=== PATIENT | female | born 1945 | race Caucasian/White ===

== ENCOUNTER 2025-02-21 06:40 | Day surgery (SDC) | payer MEDICARE, BC, SELFPAY ==
[2025-02-19 09:24] VITALS: BMI 26.3
--- NOTE | 2025-02-20 07:00 | EKG_ITS ---
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
[2025-02-20 09:52] LABS: Basophils # (Auto) 0.1 Thou/mm3 (0.0-0.2); Basophils % (Auto) 2 % (0-2.5); Eosinophils # (Auto) 0.4 Thou/mm3 (0.0-0.5); Eosinophils % (Auto) 6 % (0-10); Hematocrit 42.1 % (36.0-46.0); Hemoglobin 13.6 g/dL (12.0-16.0); Immature Granulocytes % (Auto) 1 % (0-0); Immature Granulocytes Auto 0.04 Thou/mm3 (0.00-0.00); Lymphocytes # (Auto) 1.3 Thou/mm3 (1.0-4.8); Lymphocytes % (Auto) 19 % (10-50); Mean Corpuscular HGB Conc 32.3 g/dl (31.0-37.0); Mean Corpuscular Hemoglobin 29.3 pg (25.0-35.0); Mean Corpuscular Volume 91 fL (80-100); Monocytes # (Auto) 0.7 Thou/mm3 (0.0-0.8); Monocytes % (Auto) 11 % (0-12); Neutrophils # (Auto) 4.1 Thou/mm3 (1.8-7.7); Neutrophils % (Auto) 61 % (37-80); Nucleated Red Blood Cell % 0 /100 WBC (0); Platelet Count 202 Thou/mm3 (140-440); RDW Standard Deviation 48.4 fL (36.4-46.3); Red Blood Count 4.64 Miln/mm3 (4.00-5.20); White Blood Count 6.6 Thou/mm3 (3.6-11.0)
[2025-02-20 09:53] LABS: Partial Thromboplastin Time 25.2 Seconds (22.0-36.0); Prothrombin Time 10.9 Seconds (9.0-12.2)
[2025-02-20 09:58] LABS: Anion Gap 11 (7-16); BUN/Creatinine Ratio 19 Ratio (12-20); Blood Urea Nitrogen 19 mg/dL (9-23); Calcium 9.5 mg/dL (8.3-10.6); Carbon Dioxide 26.4 mMol/L (20.0-31.0); Chloride 108 mMol/L (98-107); Estimated Creatinine Clearance 46.2 mL/min (>60); Glucose 108 mg/dL (74-106); Osmolality,Calculated 291 (275-295); Sodium 145 mMol/L (136-145); eGFR 57 See Note
[2025-02-21] VITALS (15 sets, daily range): BP systolic 122–159; BP diastolic 46–69; PULSE 48–60; RESP 14–20; TEMP 36.5–36.8; O2SAT 96–99
--- NOTE | 2025-02-21 10:05 | PC.NURSE ---
0851 patient is awake, alert, breathing unlabored, s/p LHC by Dr. Asbhy, Dressing to right groin dry with no bleeding or hematoma, report received from Clementine ISAACS. Patient to recover for [address] Ashby at bedside talking to patient and family and answering questions. 15 patient food tray arrived, pt eating jello and would like to wait to eat the rest
--- NOTE | 2025-02-21 10:14 | ESOP_ITS ---
RE: RICHAR CHRISTIAN : 1945 DATE OF OPERATION: 02/21/2025 PROCEDURE PERFORMED: 1. Diagnostic left heart cardiac catheterization, selective coronary angiogram, left ventricular angiogram, CPT 74530. 2. Conscious sedation for 30-minute duration. 3. Ultrasound-guided access, right femoral artery. DIAGNOSES: Coronary artery disease, abnormal stress test. HISTORY AND INDICATIONS: The patient is an 79-year-old lady with a history of hypertension and sick sinus syndrome. Previously, she has cardiac arrhythmias, has unspecified angina and shortness of breath. Nuclear scan showed perfusion _ in the inferior apical segments. Coronary angiogram was recommended to assess if the patient is a candidate for intervention and revascularization. DESCRIPTION OF PROCEDURE: The patient was brought to cardiac catheterization laboratory where she was given 2 mg Versed and 50 mcg of fentanyl for sedation. The right femoral approach was taken. right femoral approach. The right femoral artery was cannulated by micropuncture technique and 5-[place] sheath was introduced. Ultrasound guidance was used. A 5-[place] FR4 guiding diagnostic catheter was used to perform left heart catheterization, and right coronary angiogram. A 5-[place] FL4 diagnostic catheter was used to perform left coronary angiogram, multiple views were obtained. The patient tolerated the procedure well with no complications. Cardiac catheterization showed following findings: HEMODYNAMICS: Left ventricular pressure is 155/0, EDP 20, aortic pressure 152/100. There is no gradient across the aortic valve. Left ventricular angiogram showed evidence of normal left ventricular wall motion, ejection fraction 70%. FINDINGS: Coronary angiogram showed the following findings: Right coronary artery is large and dominant, gives off PDA and PL branches, all of them appear normal. Left coronary system: Left main coronary artery is normal. Left anterior descending artery appears normal. Left circumflex artery is nondominant, appeared normal. Ramus intermedius is normal. SUMMARY OF FINDINGS AND SUGGESTIONS: 1. Normal nonobstructive epicardial coronary arteries. 2. Dominant right coronary artery. 3. Normal left ventricular function. Ejection fraction 30%. RECOMMENDATIONS: The patient was reassured about the absence of significant obstructive coronary artery disease. Prognosis is excellent. DT: 08:47:32 TT: 09:44:00 Ref: [id number] - TID: [id number] [facility]
--- NOTE | 2025-02-21 14:03 | PC.NURSE ---
1308 patient is awake, alert, breathing unlabored, dressing to right groin dry with no bleeding or hematoma, pt able to ambulate to bathroom and void, able to tolerate jello, water and applesauce with no nausea or vomiting, meets discharge criteria, discharge instructions given to patient and Shreyas, patient discharged home in wheelchair with all belongings.
== END 2025-02-21 13:08 | disposition home or self-care (01) ==
PROVIDERS: PCP Family Medicine; Referring Provider Internal Medicine Cardiovascular Disease; Visit Provider Internal Medicine Cardiovascular Disease
PROC: (CPT 93458; principal; 2025-02-21 07:30)
DX: I25.119 Atherosclerotic heart disease of native coronary artery with unspecified angina pectoris (principal); R00.1 Bradycardia, unspecified; I10 Essential (primary) hypertension; J45.20 Mild intermittent asthma, uncomplicated; Z79.899 Other long term (current) drug therapy; Z88.6 Allergy status to analgesic agent; Z88.1 Allergy status to other antibiotic agents; Z88.0 Allergy status to penicillin; Z88.2 Allergy status to sulfonamides; Z88.8 Allergy status to other drugs, medicaments and biological substances
CPT/HCPCS: 93458; 36415; 80048; 85025; 85610; 85730; 93005; 99152; A4649; C1769; C1894; J0153; J0171; J0282; J0461; J1643; J2250; J2310; J2371; J3010; J3490; Q9967